=== PATIENT | female | born 1940 | race Caucasian/White ===

== ENCOUNTER 2022-06-02 13:53 | Emergency (ER) | payer MEDICARE, OTHER ==
[2022-06-02] MEDS ORDERED: Sodium Chloride 0.9% 10 ML Syringe FLUSH PRN (14:03)
[2022-06-02] MEDS ORDERED: Sodium Chloride 0.9% 1,000 ML IV SCH (14:30)
[2022-06-02 14:40] LABS: ESTIMATED GFR 88 mL/min (>60)
[2022-06-02] MEDS: Ondansetron 4 MG/2 ML SDV IVPUSH STA ×2 (14:43→14:47)
[2022-06-02] MEDS ORDERED: Acetaminophen 500 MG Tab PO STA (15:13)
[2022-06-02] MEDS ORDERED: Acetaminophen 500 MG Tab ONE (15:14)
[2022-06-02] MEDS ORDERED: Labetalol 20 MG/4 ML Syringe IVPUSH STA (15:20)
[2022-06-02] MEDS ORDERED: Labetalol 20 MG/4 ML Syringe ONE (15:21)
[2022-06-02 16:08] VITALS: PULSE 98
[2022-06-02 16:37] VITALS: BP 142/70
== END 2022-06-02 16:35 | disposition home or self-care (01) ==
LOC: FB.ED 13:53
DX: U07.1 COVID-19 (principal); E78.00 Pure hypercholesterolemia, unspecified; I10 Essential (primary) hypertension; K21.9 Gastro-esophageal reflux disease without esophagitis; E11.9 Type 2 diabetes mellitus without complications; Z88.1 Allergy status to other antibiotic agents; Z88.0 Allergy status to penicillin; Z88.5 Allergy status to narcotic agent; Z88.8 Allergy status to other drugs, medicaments and biological substances; Z79.899 Other long term (current) drug therapy; Z79.82 Long term (current) use of aspirin
CPT/HCPCS: 36415; 71045; 80053; 85025; 96361; 96374; 99284; A9270; J3490; J7030; U0002; J2405

== ENCOUNTER 2022-06-05 21:00 | Emergency (ER) | payer MEDICARE, OTHER ==
[2022-06-05] MEDS ORDERED: amLODIPine 5 MG Tab PO ONE ×2 (21:01→21:33)
[2022-06-05 21:40] VITALS: BP 203/95
[2022-06-05 22:02] LABS: ESTIMATED GFR 75 mL/min (>60)
[2022-06-05] MEDS ORDERED: Sodium Chloride 0.9% 10 ML Syringe FLUSH PRN (22:42)
[2022-06-05] MEDS: Sodium Chloride 0.9% 1,000 ML IV SCH (23:00)
[2022-06-06] MEDS ORDERED: Nitroglycerin 2% Oint 1 GM UD Packet TOP ONE (00:56)
[2022-06-06] MEDS: Sodium Chloride 0.9% 1,000 ML IV SCH (01:00)
[2022-06-06] MEDS ORDERED: amLODIPine 5 MG Tab PO ONE (05:12)
[2022-06-06 05:49] LABS: ESTIMATED GFR 91 mL/min (>60)
[2022-06-06] MEDS ORDERED: amLODIPine 5 MG Tab PO SCH (09:00)
== END 2022-06-06 06:25 | disposition home or self-care (01) ==
LOC: FB.ED 21:00
DX: I16.0 Hypertensive urgency (principal); I10 Essential (primary) hypertension; E87.1 Hypo-osmolality and hyponatremia; E78.00 Pure hypercholesterolemia, unspecified; K21.9 Gastro-esophageal reflux disease without esophagitis; E11.9 Type 2 diabetes mellitus without complications; Z88.1 Allergy status to other antibiotic agents; Z88.0 Allergy status to penicillin; Z88.5 Allergy status to narcotic agent; Z91.09 Other allergy status, other than to drugs and biological substances; Z79.899 Other long term (current) drug therapy; Z79.82 Long term (current) use of aspirin; Z79.4 Long term (current) use of insulin
CPT/HCPCS: 36415; 80048; 84484; 85025; 85379; 86140; 96360; 96361; 99283; A9270; J7030

== ENCOUNTER 2022-06-11 15:46 | Emergency (ER) | payer MEDICARE, OTHER ==
[2022-06-11] MEDS ORDERED: Sodium Chloride 0.9% 10 ML Syringe FLUSH PRN (16:02)
[2022-06-11 16:35] LABS: ESTIMATED GFR 88 mL/min (>60)
[2022-06-11 17:50] VITALS: BP 157/91; PULSE 96
== END 2022-06-11 16:30 | disposition home or self-care (01) ==
LOC: FB.ED 15:46
DX: R41.0 Disorientation, unspecified (principal); E78.00 Pure hypercholesterolemia, unspecified; I10 Essential (primary) hypertension; K21.9 Gastro-esophageal reflux disease without esophagitis; E11.9 Type 2 diabetes mellitus without complications; Z88.1 Allergy status to other antibiotic agents; Z88.0 Allergy status to penicillin; Z88.5 Allergy status to narcotic agent; Z91.09 Other allergy status, other than to drugs and biological substances; Z79.82 Long term (current) use of aspirin; Z79.899 Other long term (current) drug therapy
CPT/HCPCS: 36415; 70450; 80048; 81001; 82947; 84443; 84484; 85027; 99285